=== PATIENT | female | born 1975 | race Caucasian/White ===

== ENCOUNTER 2023-04-26 19:28 | Inpatient (IN) | payer MEDICARE, MEDICAID ==
[~2023-04-26] VITALS: Ht 170.2 cm; Wt 105.2 kg
[~2023-04-26 19:28] MED LIST: ALBU18HF12 IH; AMIT50TA4 PO; ATOR20TA65 PO; BECL10.6 IH; FLUO60TA PO; HYDR50CA6 PO; INSU100V12 SQ; LEVO-72 PO; LOSA1TAB37 PO; MONT-35 PO; PRED-554 PO; THEO400T9 PO; TRAZ-252 PO
[2023-04-26 19:40] VITALS: PULSE 127; RESP 40; O2SAT 98
[2023-04-26] MEDS ORDERED: 0.9% SODIUM CHLORIDE 15 ML NEB SOLUTION NEB ONE (19:45)
[2023-04-26] MEDS ORDERED: IPRATROPIUM BROMIDE 0.5 MG/2.5 ML NEB SOLUTION NEB ONE (19:45)
[2023-04-26] MEDS ORDERED: ALBUTEROL SULFATE 2.5 MG/0.5 ML 5 ML NEB SOLUTION NEB ONE (19:45)
[2023-04-26] MEDS ORDERED: LORazepam 2 MG/ML VIAL IVP ONE (19:45)
[2023-04-26] MEDS ORDERED: MethylPREDNISolone SOD SUCC 125 MG/2 ML VIAL IVP ONE (19:45)
[2023-04-26 19:50] VITALS: PULSE 120; RESP 33; O2SAT 99
[2023-04-26 20:50] VITALS: PULSE 108; RESP 31; O2SAT 97
[2023-04-26] MEDS ORDERED: MORPHINE SULFATE 2 MG/ML SYRINGE IVP ONE (21:00)
[2023-04-26 21:29] LABS: BASOPHILS % (AUTO) 0.4 % (0.0-2.0); EOSINOPHILS % (AUTO) 7.5 % (1.0-6.0); HEMATOCRIT 43.8 % (36-46); HEMOGLOBIN 14.8 g/dL (12.0-16.0); LYMPHOCYTES # (AUTO) 3.3 K/uL (1.0-4.8); LYMPHOCYTES % (AUTO) 22.4 % (22.0-44.0); MEAN CORPUSCULAR HEMOGLOBIN 30.3 pg (26.0-34.0); MEAN CORPUSCULAR HGB CONC 33.8 G/dL (31.0-37.0); MEAN CORPUSCULAR VOLUME 90 fL (80-100); MONOCYTES # (AUTO) 0.5 K/uL (0.1-1.0); MONOCYTES % (AUTO) 3.7 % (2.0-9.0); NEUTROPHILS # (AUTO) 9.8 K/uL (1.8-7.7); PLATELET COUNT (AUTO) 375 K/uL (150-450); RED BLOOD CELL COUNT(AUTO) 4.88 MIL/uL (4.00-5.20); RED CELL DISTRIBUTION WIDTH 13.8 % (11.5-14.5); WHITE BLOOD COUNT (AUTO) 14.9 K/uL (4.5-11.0)
[2023-04-26 21:33] LABS: ANION GAP 12 mmol/L (8-16); CALCIUM, TOTAL 9.4 mg/dL (8.8-10.5); CARBON DIOXIDE 24 mmol/L (22-29); CHLORIDE 100 mmol/L (98-107); CREATININE 1.04 mg/dL (0.60-1.30); GLOMERULAR FILTR. RATE CALC 57 mL/min (>60); GLUCOSE,RANDOM 122 mg/dL (70-110); POTASSIUM 3.7 mmol/L (3.5-5.1); SODIUM SERUM 136 mmol/L (136-145); UREA NITROGEN, BLOOD 20 mg/dL (7-18)
[2023-04-26 21:38] LABS: ALANINE AMINOTRANSFERASE 45 U/L (12-78); ALBUMIN 3.8 g/dL (3.4-5.0); ALKALINE PHOSPHATASE 115 U/L (46-116); ASPARTATE AMINOTRANSFERASE 29 U/L (15-37); BILIRUBIN,TOTAL 0.7 mg/dL (0.1-1.0); CREATINE KINASE, TOTAL ONLY 52 U/L (26-192); TOTAL PROTEIN, SERUM 7.3 g/dL (6.4-8.2); TROPONIN I-HIGH SENSITIVITY 4 ng/L (<51)
[2023-04-26 21:50] VITALS: PULSE 113; RESP 22; O2SAT 98
[2023-04-26 21:51] LABS: B-TYPE NATRIURETIC PEPTIDE < 5 pg/mL (0-100)
[2023-04-26] MEDS ORDERED: ALBUTEROL SULFATE 2.5 MG/0.5 ML NEB SOLUTION NEB PRN (22:45)
[2023-04-26] MEDS ORDERED: IPRATROPIUM BROMIDE 0.5 MG/2.5 ML NEB SOLUTION NEB PRN (22:45)
[2023-04-26] MEDS ORDERED: ONDANSETRON HCL 4 MG/2 ML VIAL IVP PRN (22:45)
[2023-04-26 23:19] LABS: COVID AG,FIA SOURCE NASAL SWAB
[2023-04-26] MEDS ORDERED: DEXTROSE 50%-WATER 25 GM/50 ML SYRINGE IVP PRN (23:30)
[2023-04-26 23:40] LABS: SARS-COV2 (COVID) ANTIGEN,FIA Negative (Negative)
[2023-04-26 23:45] LABS: INFLUENZA TYPE A NEGATIVE FOR TYPE A (NEGATIVE); INFLUENZA TYPE B NEGATIVE FOR TYPE B (NEGATIVE)
[2023-04-26] MEDS ORDERED: IOHEXOL 350 MG/ML 100 ML VIAL ONE (23:51)
[2023-04-26] MEDS ORDERED: SODIUM CHLORIDE 0.9% 100 ML ONE (23:51)
[2023-04-27] VITALS: BP 104/75; PULSE 101; RESP 15; TEMP 98.2
[2023-04-27] MEDS: INSULIN LISPRO 100 UNITS/ML SQ PRN ×4 (01:08→17:39)
[2023-04-27] MEDS: ACETAMINOPHEN 325 MG TABLET PO PRN ×3 (01:08→12:03)
[2023-04-27] MEDS: HEPARIN SODIUM,PORCINE 5,000 UNITS/ML VIAL SQ SCH ×4 (01:08→23:58)
[2023-04-27 01:36] LABS: GLUCOMETER DEV NAME(LOC) 5S.2C; GLUCOSE,POINT OF CARE 201 MG/DL (70-110)
[2023-04-27 04:00] VITALS: BP 119/62; PULSE 93; RESP 17; TEMP 98.1
[2023-04-27 05:43] LABS: BASOPHILS % (AUTO) 0.1 % (0.0-2.0); EOSINOPHILS % (AUTO) 0.2 % (1.0-6.0); HEMATOCRIT 42.4 % (36-46); LYMPHOCYTES # (AUTO) 1.5 K/uL (1.0-4.8); LYMPHOCYTES % (AUTO) 8.6 % (22.0-44.0); MEAN CORPUSCULAR HEMOGLOBIN 29.5 pg (26.0-34.0); MEAN CORPUSCULAR HGB CONC 33.1 G/dL (31.0-37.0); MEAN CORPUSCULAR VOLUME 89 fL (80-100); MONOCYTES # (AUTO) 0.1 K/uL (0.1-1.0); MONOCYTES % (AUTO) 0.7 % (2.0-9.0); NEUTROPHILS # (AUTO) 15.7 K/uL (1.8-7.7); PLATELET COUNT (AUTO) 371 K/uL (150-450); RED BLOOD CELL COUNT(AUTO) 4.74 MIL/uL (4.00-5.20); RED CELL DISTRIBUTION WIDTH 13.8 % (11.5-14.5); WHITE BLOOD COUNT (AUTO) 17.3 K/uL (4.5-11.0)
[2023-04-27 05:51] LABS: NEUTROPHILS % (AUTO) 90.4 % (40.0-70.0)
[2023-04-27 05:58] LABS: ANION GAP 14 mmol/L (8-16); CARBON DIOXIDE 20 mmol/L (22-29); CHLORIDE 100 mmol/L (98-107); CREATININE 0.93 mg/dL (0.60-1.30); GLUCOSE,RANDOM 194 mg/dL (70-110); SODIUM SERUM 134 mmol/L (136-145); UREA NITROGEN, BLOOD 18 mg/dL (7-18)
[2023-04-27 05:59] LABS: CALCIUM, TOTAL 9.2 mg/dL (8.8-10.5); GLOMERULAR FILTR. RATE CALC > 60 mL/min (>60)
[2023-04-27 07:28] VITALS: BP 145/76; PULSE 99; RESP 18; TEMP 98
[2023-04-27] MEDS: MethylPREDNISolone SOD SUCC 125 MG/2 ML VIAL IVP SCH (08:10)
[2023-04-27] MEDS: DOCUSATE SODIUM 100 MG CAPSULE PO SCH ×2 (08:10→21:00)
[2023-04-27 11:25] VITALS: BP 113/58; PULSE 88; RESP 19; TEMP 98.1
[2023-04-27 11:37] LABS: GLUCOMETER DEV NAME(LOC) 5N.1C; GLUCOSE,POINT OF CARE 206 MG/DL (70-110)
[2023-04-27 13:36] LABS: GLUCOMETER DEV NAME(LOC) 5N.1C; GLUCOSE,POINT OF CARE 206 MG/DL (70-110)
[2023-04-27] MEDS: ONDANSETRON HCL 4 MG/2 ML VIAL IVP PRN (14:08)
[2023-04-27] MEDS: HYDROCODONE/ACETAMINOPHEN 5-325 MG TABLET PO PRN ×2 (14:09→22:21)
[2023-04-27 15:24] VITALS: BP 138/86; PULSE 83; RESP 18; TEMP 97.9
[2023-04-27 20:00] VITALS: BP 124/87; PULSE 80; RESP 18; TEMP 98
[2023-04-27 21:31] LABS: GLUCOMETER DEV NAME(LOC) 5N.1C; GLUCOSE,POINT OF CARE 164 MG/DL (70-110)
[2023-04-27] MEDS: INSULIN GLARGINE,HUM.REC.ANLOG 100 UNITS/ML SQ SCH (22:19)
[2023-04-27 23:26] LABS: GLUCOMETER DEV NAME(LOC) 5S.2C; GLUCOSE,POINT OF CARE 144 MG/DL (70-110)
[2023-04-28] VITALS: BP 117/67; PULSE 86; RESP 17; TEMP 97.5
[2023-04-28 05:08] VITALS: BP 119/75; PULSE 74; RESP 17; TEMP 98
[2023-04-28] MEDS: ONDANSETRON HCL 4 MG/2 ML VIAL IVP PRN ×2 (05:31→17:11)
[2023-04-28] MEDS: INSULIN LISPRO 100 UNITS/ML SQ PRN ×2 (06:39→21:20)
[2023-04-28 06:56] LABS: GLUCOMETER DEV NAME(LOC) 5N.1C; GLUCOSE,POINT OF CARE 144 MG/DL (70-110)
[2023-04-28 07:27] VITALS: BP 128/71; PULSE 68; RESP 18; TEMP 98
[2023-04-28] MEDS: DOCUSATE SODIUM 100 MG CAPSULE PO SCH ×2 (08:30→21:08)
[2023-04-28] MEDS: HEPARIN SODIUM,PORCINE 5,000 UNITS/ML VIAL SQ SCH ×2 (08:30→17:33)
[2023-04-28] MEDS: MethylPREDNISolone SOD SUCC 125 MG/2 ML VIAL IVP SCH (08:30)
[2023-04-28 09:07] LABS: BASOPHILS % (AUTO) 0.3 % (0.0-2.0); EOSINOPHILS % (AUTO) 0.1 % (1.0-6.0); HEMATOCRIT 39.1 % (36-46); HEMOGLOBIN 12.8 g/dL (12.0-16.0); LYMPHOCYTES # (AUTO) 3.4 K/uL (1.0-4.8); LYMPHOCYTES % (AUTO) 16.5 % (22.0-44.0); MEAN CORPUSCULAR HEMOGLOBIN 30.1 pg (26.0-34.0); MEAN CORPUSCULAR HGB CONC 32.9 G/dL (31.0-37.0); MEAN CORPUSCULAR VOLUME 92 fL (80-100); MONOCYTES # (AUTO) 1.2 K/uL (0.1-1.0); MONOCYTES % (AUTO) 5.7 % (2.0-9.0); NEUTROPHILS # (AUTO) 15.9 K/uL (1.8-7.7); NEUTROPHILS % (AUTO) 77.4 % (40.0-70.0); PLATELET COUNT (AUTO) 355 K/uL (150-450); RED BLOOD CELL COUNT(AUTO) 4.27 MIL/uL (4.00-5.20); WHITE BLOOD COUNT (AUTO) 20.6 K/uL (4.5-11.0)
[2023-04-28 09:18] LABS: ANION GAP 7 mmol/L (8-16); CALCIUM, TOTAL 8.9 mg/dL (8.8-10.5); CARBON DIOXIDE 26 mmol/L (22-29); CHLORIDE 101 mmol/L (98-107); CREATININE 0.93 mg/dL (0.60-1.30); GLOMERULAR FILTR. RATE CALC > 60 mL/min (>60); GLUCOSE,RANDOM 135 mg/dL (70-110); POTASSIUM 4.6 mmol/L (3.5-5.1); SODIUM SERUM 134 mmol/L (136-145); UREA NITROGEN, BLOOD 15 mg/dL (7-18)
[2023-04-28 11:38] VITALS: BP 122/68; PULSE 72; RESP 18; TEMP 98
[2023-04-28 11:51] LABS: GLUCOMETER DEV NAME(LOC) 5S.2C; GLUCOSE,POINT OF CARE 134 MG/DL (70-110)
[2023-04-28] MEDS ORDERED: SODIUM CHLORIDE 0.9% 500 ML IV ONE (16:55)
[2023-04-28] MEDS: HYDROCODONE/ACETAMINOPHEN 5-325 MG TABLET PO PRN (17:11)
[2023-04-28 17:42] LABS: GLUCOMETER DEV NAME(LOC) 6N.2B; GLUCOSE,POINT OF CARE 115 MG/DL (70-110)
[2023-04-28 20:01] VITALS: BP 129/82; PULSE 76; RESP 18; TEMP 98.2
[2023-04-28] MEDS: INSULIN GLARGINE,HUM.REC.ANLOG 100 UNITS/ML SQ SCH (21:16)
[2023-04-29] MEDS: HEPARIN SODIUM,PORCINE 5,000 UNITS/ML VIAL SQ SCH ×2 (00:52→08:27)
[2023-04-29 04:19] VITALS: BP 136/75; PULSE 72; RESP 18; TEMP 98
[2023-04-29] MEDS: ONDANSETRON HCL 4 MG/2 ML VIAL IVP PRN ×2 (05:13→13:34)
[2023-04-29] MEDS: HYDROCODONE/ACETAMINOPHEN 5-325 MG TABLET PO PRN ×2 (05:15→13:34)
[2023-04-29 06:21] LABS: GLUCOMETER DEV NAME(LOC) 4E.2; GLUCOSE,POINT OF CARE 175 MG/DL (70-110)
[2023-04-29 07:28] LABS: BASOPHILS % (AUTO) 0.4 % (0.0-2.0); EOSINOPHILS % (AUTO) 0.1 % (1.0-6.0); HEMATOCRIT 40.5 % (36-46); HEMOGLOBIN 13.2 g/dL (12.0-16.0); LYMPHOCYTES # (AUTO) 3.8 K/uL (1.0-4.8); LYMPHOCYTES % (AUTO) 19.6 % (22.0-44.0); MEAN CORPUSCULAR HEMOGLOBIN 29.8 pg (26.0-34.0); MEAN CORPUSCULAR HGB CONC 32.7 G/dL (31.0-37.0); MEAN CORPUSCULAR VOLUME 91 fL (80-100); MONOCYTES # (AUTO) 1.6 K/uL (0.1-1.0); MONOCYTES % (AUTO) 8.2 % (2.0-9.0); NEUTROPHILS % (AUTO) 71.7 % (40.0-70.0); PLATELET COUNT (AUTO) 341 K/uL (150-450); RED BLOOD CELL COUNT(AUTO) 4.43 MIL/uL (4.00-5.20); RED CELL DISTRIBUTION WIDTH 14.2 % (11.5-14.5); WHITE BLOOD COUNT (AUTO) 19.5 K/uL (4.5-11.0)
[2023-04-29 07:37] LABS: ANION GAP 9 mmol/L (8-16); CARBON DIOXIDE 25 mmol/L (22-29); CHLORIDE 99 mmol/L (98-107); CREATININE 0.85 mg/dL (0.60-1.30); GLOMERULAR FILTR. RATE CALC > 60 mL/min (>60); GLUCOSE,RANDOM 114 mg/dL (70-110); POTASSIUM 4.8 mmol/L (3.5-5.1); SODIUM SERUM 133 mmol/L (136-145); UREA NITROGEN, BLOOD 20 mg/dL (7-18)
[2023-04-29 07:41] LABS: CALCIUM, TOTAL 9.2 mg/dL (8.8-10.5)
[2023-04-29] MEDS: DOCUSATE SODIUM 100 MG CAPSULE PO SCH (08:18)
[2023-04-29 08:41] LABS: GLUCOMETER DEV NAME(LOC) 6N.2B; GLUCOSE,POINT OF CARE 124 MG/DL (70-110)
[2023-04-29 08:43] VITALS: BP 137/79; PULSE 57; RESP 18; TEMP 97.8
[2023-04-29] MEDS ORDERED: PredniSONE 20 MG TABLET PO SCH (09:00)
[2023-04-29] MEDS ORDERED: PRED-554 PO (10:32)
[2023-04-29 17:16] LABS: GLUCOMETER DEV NAME(LOC) 6N.2B; GLUCOSE,POINT OF CARE 124 MG/DL (70-110)
== END 2023-04-29 14:50 | disposition home or self-care (01) | DRG 189 ==
LOC: EMS 19:29 → 5S 23:06 → 6N 04-28 15:47
PROVIDERS: ADMIT Internal Medicine; ATTEND Internal Medicine
PROC: 5A09357 Assistance with Respiratory Ventilation, Less than 24 Consecutive Hours, Continuous Positive Airway Pressure (ICD-10-PCS; principal; 2023-04-26)
DX: J96.21 Acute and chronic respiratory failure with hypoxia (principal); B44.81 Allergic bronchopulmonary aspergillosis; R00.0 Tachycardia, unspecified; E11.9 Type 2 diabetes mellitus without complications; D72.829 Elevated white blood cell count, unspecified; Z20.822 Contact with and (suspected) exposure to COVID-19; E66.01 Morbid (severe) obesity due to excess calories; Z68.36 Body mass index [BMI] 36.0-36.9, adult; Z99.81 Dependence on supplemental oxygen; Z79.899 Other long term (current) drug therapy; Z79.4 Long term (current) use of insulin; Z86.73 Personal history of transient ischemic attack (TIA), and cerebral infarction without residual deficits; Z88.0 Allergy status to penicillin; J44.89 Other specified chronic obstructive pulmonary disease
CPT/HCPCS: 71045; 71275; 80048; 80053; 82550; 82962; 83735; 83880; 84484; 85025; 85379; 87040; 87804; 93005; 94644; 94660; 99285; J1644; J1815; J2060; J2270; J2405; J2930; J7040; J7050; Q9967; 36415-L1; 36415-TC